=== PATIENT | male | born 1995 | race Caucasian/White ===

== ENCOUNTER 2019-05-15 12:01 | Emergency (ER) | payer OTHER ==
[~2019-05-15] VITALS: Ht 175.3 cm; Wt 63.5 kg
[2019-05-15 12:21] VITALS: BP_SYST 114
--- NOTE | 2019-05-15 14:01 | NUR ---
Patient to ER bed h1 for evaluation. Side rails up.
--- NOTE | 2019-05-15 14:05 | NUR ---
Pt AAOx4 ambulated into ED c/o puncture bites to R finger s/p being bitten by stray cat yesterday. No active bleeding noted to site. Reports numbness to distal finger, slight swelling and redness noted. Pt has been applying neosporin to site. No other injuries/complaints per pt/noted. Will continue to monitor.
--- NOTE | 2019-05-15 14:07 | NUR ---
ER Dr. Sandoval at bedside examining patient.
[2019-05-15] MEDS ORDERED: DIPH-TET-PERTUS Vaccine 0.5 ML VIAL (ADACEL) I.M. ONE (14:15)
[2019-05-15] MEDS ORDERED: PENICILLIN V POTASSIUM 250 MG TABLET PO ONE ×2 (14:15→14:30)
[2019-05-15] MEDS ORDERED: PENICILLIN V POTASSIUM 250 MG TABLET PO SCH ×2 (14:15→18:00)
[2019-05-15] MEDS ORDERED: BACITRACIN 1 GM OINT TP ONE (14:30)
--- NOTE | 2019-05-15 14:37 | NUR ---
Patient given written and verbal discharge instructions and verbalizes understanding. ER MD Sandoval discussed with patient the results and treatment provided. Patient in stable condition. ID arm band removed. Rx of Penivillin VK given. Patient educated on pain management and 500mg Tab QID to follow up with PMD. Pain Scale 0. Opportunity for questions provided and answered. Medication side effect fact sheet provided.
[2019-05-15 14:59] VITALS: BP_SYST 122
== END 2019-05-15 14:37 | disposition home or self-care (01) ==
LOC: SED 12:01
DX: S60.511A Abrasion of right hand, initial encounter (principal); W55.01XA Bitten by cat, initial encounter; Y93.89 Activity, other specified; Y92.89 Other specified places as the place of occurrence of the external cause; Y99.8 Other external cause status
CPT/HCPCS: 90715; 99283